=== PATIENT | female | born 1950 | race Caucasian/White ===

== ENCOUNTER 2024-08-08 20:43 | Emergency (ER) | payer MEDICARE, SELFPAY ==
--- NOTE | ~2024-08-08 | XR_ITS ---
EXAMINATION: XR CHEST CLINICAL INFORMATION: Cough COMPARISON: None available. TECHNIQUE: 2 views of the chest were obtained. FINDINGS: Status post median sternotomy and aortic valve replacement. Cardiomediastinal silhouette is normal. Hyperexpanded lungs. No consolidation, pleural effusion or pneumothorax. No acute osseous abnormalities. XR/XR chest 2V IMPRESSION: Hyperexpanded lungs. No acute cardiopulmonary process. Electronically signed by: Francisco Javier Cancino MD 08/08/2024 09:41 PM EDT RP
[2024-08-08 20:45] VITALS: BP 114/72; PULSE 20; RESP 75; TEMP 36.5; O2SAT 94; BMI 27.5
--- NOTE | 2024-08-08 20:46 | ED_ITS ---
HPI - General Adult General Chief complaint: Upper Respiratory Symptoms Stated complaint: congested cough Time Seen by Provider: 08/09/24 00:17 Source: patient Mode of arrival: ambulatory Limitations: no limitations History of Present Illness ED Provider: Dr. Sowmya Pike HPI narrative: Patient comes to the emergency room complaining of cough. Patient states that couple of days ago she went to see her primary care physician, diagnosed her with bronchitis. Patient taking p.o. prednisone, no antibiotics given. Patient states that she is still coughing. Denies chest pain or shortness of breath. Denies fever or chills Related Data Previous Rx's ?Medication ?Instructions ?Recorded benzonatate 100 mg capsule 100 mg PO TID PRN cough #12 caps 08/09/24 Allergies Allergy/AdvReac Type Severity Reaction Status Date / Time No Known Allergies Allergy Verified 08/08/24 20:50 Review of Systems Review of Systems: Constitutional : No Weight loss, No Fever, No Chills, No Night Sweats, No Fatigue, No Malaise ENT/Mouth : No Hearing loss, No Ear Pain, No Nasal Congestion, No Sinus Pain, No Hoarseness, No sore throat, No Rhinorrhea, No Swallowing Difficulty Eyes: No Eye Pain, No Swelling, No Redness, No Foreign Body, No Discharge, No Vision Changes Cardiovascular : No Chest Pain, No SOB, No Dyspnea on Exertion, No Orthopnea, No Edema, No Palpitations Respiratory : Complaining of cough, No Sputum, No Wheezing, No Smoke Exposure, No Dyspnea Gastrointestinal : No Nausea, No Vomiting, No Diarrhea, No Constipation, No abdominal Pain, No Hematochezia, No Melena Genitourinary : no irregular bleeding, No Dysuria, No Urinary Frequency, No Hematuria, No Urinary Incontinence, No Urgency, No Flank Pain, No Urinary Flow Changes, No Hesitancy Musculoskeletal : No joint pain, No Myalgias, No Joint Swelling Skin : No Skin Lesions, No rash Neuro : No Weakness, No Numbness, No Paresthesias, No Loss of Consciousness, No Dizziness, No Headache Psych : No Anxiety/Panic, No Depression, No SI/HI/AH/VH, No Social Issues, Heme/Lymph: No Bruising, No Bleeding,No Lymphadenopathy Endocrine : No Polyuria, No Polydipsia, No Temperature Intolerance PMFSH Social History Social History Do you have a plan to hurt others: No Plan Physical Exam ED Vital Signs: Vital Signs - 24 hr 08/08/24 20:45 Temperature 97.7 F Pulse Rate 20 L Respiratory Rate 75 H Blood Pressure 114/72 Pulse Oximetry 94 Oxygen Delivery Method Room Air BMI result Body Mass Index 27.5 Const Other: Appearance: Alert. Oriented X3. No acute distress. Well-appearing Eyes: Pupils equal, round and reactive to light. ENT: Pharynx normal. Neck: Normal inspection. Neck supple. No lymph nodes noted. No crepitus CVS: Normal heart rate and rhythm. Pulses normal. Normal S1 and S2 Respiratory: No respiratory distress. Bilateral rhonchi, No Wheezing. No rales Abdomen: Soft and nontender. No rigidity. No distention. Skin: Skin warm and dry. Normal skin color. Normal skin turgor. Extremities: No lower extremity edema. No Lacerations. No Rash Neuro: Oriented X 3. No motor deficit. No sensory deficit. Moving all extremities. No slurred speech. CN 2 through 12 grossly intact Psych: calm, cooperative, normal affect Course Course Course Narrative: RME, this is a rapid medical exam performed by Yair Urrutia please refer to primary provider for complete H&P- 73 year old female presents for evaluation of cough and congestion. She went to her doctor a few days ago and had an xray that was negative for pneumonia. She took a home flu and COVID swabs that were negative. Plan for repeat chest x-ray and viral swabs Medical Decision Making Medical Decision Making MDM Narrative: My interpretation of chest x-ray, no infiltrates -no wheezing, oxygen saturation 96% on room air. -respiratory rate under 20. Vitals show a respiratory rate of 75 which were incorrectly recorded -patient is already on prednisone that was started couple of days ago. Discussed with the patient that bronchitis is likely viral, antibiotics not indicated. Also discussed with the patient that the coughing may be present for at least 6 weeks -patient given p.o. prednisone in the ED Lab Data Labs: Lab Results 08/08/24 Range/Units 20:53 Influenza Type A (PCR) NEGATIVE (Negative) Influenza Type B (PCR) NEGATIVE (Negative) RSV RNA Qual (PCR) NEGATIVE (Negative) SARS-CoV-2 RNA (RT-PCR) NEGATIVE (Negative) Radiology Impression Discussion of test interpretation with radiology: I have reviewed the radiologist's reading. Radiologist Impression: Status post median sternotomy and aortic valve replacement. Cardiomediastinal silhouette is normal. Hyperexpanded lungs. No consolidation, pleural effusion or pneumothorax. No acute osseous abnormalities. XR/XR chest 2V IMPRESSION: Hyperexpanded lungs. No acute cardiopulmonary process. Discharge Plan Discharge Clinical Impression: Acute viral bronchitis Patient Disposition: Home, Self-Care Instructions: Acute Bronchitis (ED) Additional Instructions: Please follow-up with your primary care physician tomorrow. If you have any worsening or new symptoms, please return to the emergency room or call 911 Prescriptions: New benzonatate 100 mg capsule 100 mg PO TID PRN (Reason: cough) Qty: 12 0RF Print Language: Faroese
[2024-08-08 21:36] LABS: Influenza A PCR NEGATIVE (Negative); Influenza B PCR NEGATIVE (Negative); Resp Syncy Virus RNA Qual PCR NEGATIVE (Negative); SARS COV2 PCR INHOUSE NEGATIVE (Negative)
[2024-08-09] MEDS: Benzonatate 100 MG CAPSULE PO (00:32)
[2024-08-09 00:59] VITALS: BP 114/72; PULSE 80; RESP 18; TEMP 36.5; O2SAT 94
== END 2024-08-09 00:59 | disposition home or self-care (01) ==
LOC: HO.ED 08-09 00:42
PROVIDERS: Physician Assistant; Emergency Provider Emergency Medicine; PCP Nurse Practitioner Family
DX: J20.8 Acute bronchitis due to other specified organisms (principal); R05.9 Cough, unspecified; Z03.818 Encounter for observation for suspected exposure to other biological agents ruled out
CPT/HCPCS: 0241U; 71046; 99282; 99283